=== PATIENT | male | born 1945 | race Caucasian/White ===

== ENCOUNTER → 2018-04-06 | Outpatient (CLI) | payer MEDICARE ==
[~2018-04-06] MED LIST: GLIPIZIDE PO; METFORMIN PO; VICTOZA PO
[2018-04-06 14:43] LABS: ALANINE AMINOTRANSFERASE 24 U/L (12-78); ALBUMIN 3.9 g/dL (3.4-5.0); ANION GAP 8 mmol/L (5-15); CALCIUM 8.9 mg/dL (8.5-10.1); CHLORIDE 110 mmol/L (98-107); CREATININE 1.17 mg/dL (0.7-1.3)
[2018-04-06 14:45] LABS: ALKALINE PHOSPHATASE 103 U/L (45-117); BILIRUBIN,TOTAL 0.3 mg/dL (0.2-1.0); TOTAL PROTEIN 7.7 g/dL (6.4-8.2)
[2018-04-06 14:47] LABS: BASOPHILS # (AUTO) 0.01 x10^3/uL (0-0.1); BASOPHILS % (AUTO) 0 % (0-1); EOSINOPHILS # (AUTO) 0.25 x10^3/uL (0-0.4); EOSINOPHILS % (AUTO) 4 % (1-7); LYMPHOCYTES # (AUTO) 1.32 x10^3/uL (1-3.4); LYMPHOCYTES % (AUTO) 19 % (22-44); MD NO; MEAN CORPUSCULAR HGB CONC 32.2 g/dL (33.2-36.2); MEAN CORPUSCULAR VOLUME 83.9 fL (81-97); MEAN PLATELET VOLUME 9.6 fL (7.4-10.4); MONOCYTES # (AUTO) 0.51 x10^3/uL (0.2-0.8); MONOCYTES % (AUTO) 7 % (2-9); NEUTROPHILS # (AUTO) 4.94 x10^3/uL (1.8-6.8); NEUTROPHILS % (AUTO) 70 % (42-75); PLATELET COUNT 268 x10^3/uL (130-400); RED BLOOD COUNT 4.63 x10^6/uL (4.38-5.82); RED CELL DISTRIBUTION WIDTH 16.8 % (9.4-14.8)
== END | disposition home or self-care (01) ==
LOC: STAR 13:17
DX: Z01.818 Encounter for other preprocedural examination (principal); R93.5 Abnormal findings on diagnostic imaging of other abdominal regions, including retroperitoneum
CPT/HCPCS: 36415; 80053; 85025; 93005

== ENCOUNTER 2018-04-12 06:38 | Day surgery (SDC) | payer MEDICARE ==
[~2018-04-12] VITALS: Ht 185.4 cm; Wt 102.0 kg
[2018-04-12 06:56] VITALS: BP 136/78
[2018-04-12] MEDS ORDERED: ALBUTEROL SULFATE 2.5 MG/3 ML NPPB PRN (07:00)
[2018-04-12] MEDS ORDERED: hydrALAzine 20 MG/ML, 1ML IV PRN (07:00)
[2018-04-12] MEDS ORDERED: ACETAMINOPHEN 325 MG TABLET PO PRN (07:00)
[2018-04-12] MEDS ORDERED: METOPROLOL 1 MG/ML, 5ML IV PRN (07:00)
[2018-04-12] MEDS ORDERED: OXYcodone 5 MG/5 ML ORAL.SOL UDC PO PRN (07:00)
[2018-04-12] MEDS ORDERED: EPHEDRINE 50 MG/ML, 1ML IVPush PRN (07:00)
[2018-04-12] MEDS ORDERED: ONDANSETRON 2MG/ML, 2ML IV PRN (07:00)
[2018-04-12] MEDS ORDERED: FENTANYL PF 100 MCG/2ML IV PRN (07:00)
[2018-04-12] MEDS ORDERED: LABETALOL 5MG/ML, 20ML IV PRN (07:00)
[2018-04-12] MEDS ORDERED: LACTATED RINGERS 1,000 ML IV SCH (07:02)
[2018-04-12] MEDS ORDERED: PROPOFOL 10 MG/ML, 20ML ONE ×2 (07:04)
[2018-04-12] MEDS ORDERED: METF500T5 PO (07:06)
[2018-04-12] MEDS ORDERED: LIRA0.6P2 SC (07:06)
[2018-04-12] MEDS ORDERED: GLIP5TAB10 PO (07:06)
[2018-04-12] MEDS ORDERED: CIPR500T87 PO (07:06)
[2018-04-12] MEDS ORDERED: ATOR20TA PO (07:07)
[2018-04-12] MEDS ORDERED: BENA1TAB10 PO (07:07)
[2018-04-12] MEDS ORDERED: BUPR-173 PO (07:07)
[2018-04-12] MEDS ORDERED: SUCCINYLCHOLINE 20 MG/ML, 10ML ONE (07:15)
[2018-04-12] MEDS ORDERED: LIDOCAINE-MPF 1%, 2ML INFIL ONE (07:30)
[2018-04-12] MEDS ORDERED: ONDANSETRON 2MG/ML, 2ML ONE (08:01)
[2018-04-12] MEDS ORDERED: FENTANYL PF 100 MCG/2ML ONE (08:01)
== END 2018-04-12 10:25 | disposition home or self-care (01) ==
LOC: OUT 06:38
PROVIDERS: ATTEND Internal Medicine
DX: K86.2 Cyst of pancreas (principal); K57.30 Diverticulosis of large intestine without perforation or abscess without bleeding; K21.9 Gastro-esophageal reflux disease without esophagitis; D64.9 Anemia, unspecified; E11.9 Type 2 diabetes mellitus without complications; Z98.890 Other specified postprocedural states; Z95.1 Presence of aortocoronary bypass graft; Z72.89 Other problems related to lifestyle; Z86.010 Personal history of colon polyps; Z79.82 Long term (current) use of aspirin; Z98.0 Intestinal bypass and anastomosis status
CPT/HCPCS: 43238; 82962; 88172; 88173; 88305; J0330; J2405; J2704; J3010

== ENCOUNTER 2018-04-26 13:24 | Inpatient (IN) | payer MEDICARE ==
[~2018-04-26] VITALS: Ht 185.4 cm; Wt 97.4 kg
[~2018-04-26 13:24] MED LIST changes: +ATOR20TA PO; +BENA1TAB10 PO; +BUPR-173 PO; +CIPR500T87 PO; +GLIP5TAB10 PO; +LIRA0.6P2 SC; +METF500T17 PO
[2018-04-26] MEDS ORDERED: SODIUM CHLORIDE FLUSH 10ML SYR IVF PRN (14:30)
[2018-04-26] MEDS ORDERED: morphine SULFATE 10 MG/ML, 1ML IVPush PRN (15:00)
[2018-04-26] MEDS ORDERED: ACETAMINOPHEN 325 MG TABLET PO PRN (15:00)
[2018-04-26] MEDS ORDERED: GLUCAGON 1 MG IM PRN (15:00)
[2018-04-26] MEDS ORDERED: DEXTROSE 4 GM TAB.CHEW PO PRN (15:00)
[2018-04-26] MEDS ORDERED: HYDROcodone/APAP 5/325 TABLET PO PRN (15:00)
[2018-04-26] MEDS ORDERED: DEXTROSE 50%, 50ML SYRINGE IVPush PRN (15:00)
[2018-04-26] MEDS ORDERED: PROMETHAZINE 25 MG/ML, 1ML IM PRN (15:00)
[2018-04-26] MEDS ORDERED: DOCUSATE 100 MG CAPSULE PO PRN (15:00)
[2018-04-26] MEDS ORDERED: POLYETHYLENE GLYCOL 17 GM PACKET PO PRN (15:00)
[2018-04-26] MEDS ORDERED: ONDANSETRON 2MG/ML, 2ML IVPush PRN (15:00)
[2018-04-26 15:13] VITALS: BP 122/76
[2018-04-26] MEDS: INSULIN LISPRO 100 UNITS/ML, PEN SQ-INSULIN SCH ×2 (16:00→20:28)
[2018-04-26] MEDS: NS + 20MEQ KCL 1,000 ML IV SCH (17:48)
[2018-04-26 19:55] VITALS: BP 106/68
[2018-04-26] MEDS ORDERED: ZOLPIDEM 5MG TABLET PO PRN (20:30)
[2018-04-26] MEDS: CIPROFLOXACIN 500 MG TABLET PO SCH (20:57)
[2018-04-26] MEDS ORDERED: CIPROFLOXACIN 500 MG TABLET PO SCH (21:00)
[2018-04-26] MEDS ORDERED: ATORVASTATIN 20 MG TABLET PO SCH (21:00)
[2018-04-27 02:35] VITALS: BP 171/81
[2018-04-27 02:58] VITALS: BP 152/84
[2018-04-27] MEDS: NS + 20MEQ KCL 1,000 ML IV SCH (04:30)
[2018-04-27] MEDS: SODIUM CHLORIDE FLUSH 10ML SYR IVF SCH ×2 (04:31→07:54)
[2018-04-27 05:09] LABS: BASOPHILS # (AUTO) 0.03 x10^3/uL (0-0.1); BASOPHILS % (AUTO) 1 % (0-1); EOSINOPHILS # (AUTO) 0.27 x10^3/uL (0-0.4); EOSINOPHILS % (AUTO) 4 % (1-7); LYMPHOCYTES # (AUTO) 1.41 x10^3/uL (1-3.4); LYMPHOCYTES % (AUTO) 19 % (22-44); MD NO; MEAN CORPUSCULAR HGB CONC 32.4 g/dL (33.2-36.2); MEAN CORPUSCULAR VOLUME 83.2 fL (81-97); MEAN PLATELET VOLUME 9.9 fL (7.4-10.4); MONOCYTES # (AUTO) 0.45 x10^3/uL (0.2-0.8); MONOCYTES % (AUTO) 6 % (2-9); NEUTROPHILS # (AUTO) 5.26 x10^3/uL (1.8-6.8); NEUTROPHILS % (AUTO) 71 % (42-75); PLATELET COUNT 285 x10^3/uL (130-400); RED BLOOD COUNT 4.41 x10^6/uL (4.38-5.82); RED CELL DISTRIBUTION WIDTH 16.9 % (9.4-14.8)
[2018-04-27 05:13] LABS: ALANINE AMINOTRANSFERASE 18 U/L (12-78); ALBUMIN 3.2 g/dL (3.4-5.0); ANION GAP 9 mmol/L (5-15); CALCIUM 8.3 mg/dL (8.5-10.1); CHLORIDE 107 mmol/L (98-107); CHOLESTEROL, TOTAL 90 mg/dL (140-239); CREATININE 1.25 mg/dL (0.7-1.3); TRIGLYCERIDES 110 mg/dL (50-200); VLDL CHOLESTEROL 22 mg/dL (0-25)
[2018-04-27 05:22] LABS: ALKALINE PHOSPHATASE 85 U/L (45-117); BILIRUBIN,TOTAL 0.4 mg/dL (0.2-1.0); CHOL/HDL RATIO 2.4; HDL CHOL % 41 % (26-37); HDL CHOLESTEROL (DIRECT) 37 mg/dL (40-60); LDL CHOLESTEROL,CALCULATED 31 mg/dL (54-169); LDL/HDL RATIO 0.8 (0.5-3.0); TOTAL PROTEIN 6.5 g/dL (6.4-8.2)
[2018-04-27] MEDS: CIPROFLOXACIN 500 MG TABLET PO SCH (07:53)
[2018-04-27] MEDS: INSULIN LISPRO 100 UNITS/ML, PEN SQ-INSULIN SCH ×3 (07:54→15:55)
[2018-04-27] MEDS ORDERED: MAGNESIUM SULFATE PMX 2GM/50ML 50 ML IV ONE (08:00)
[2018-04-27 08:24] VITALS: BP 145/78
[2018-04-27] MEDS ORDERED: SENNA/DOCUSATE TABLET PO SCH (09:00)
[2018-04-27] MEDS ORDERED: BUPROPION SR 100 MG TABLET PO SCH (09:00)
[2018-04-27] MEDS ORDERED: GADOBUTROL 10 MMOL/10 ML VIAL ONE (09:26)
[2018-04-27 12:52] VITALS: BP 113/71
== END 2018-04-27 17:22 | disposition home or self-care (01) | DRG 683 ==
LOC: ED 14:10 → INTOOBSV 14:11 → 3NW 14:11 → SUATTDRO 14:32 → ED 14:39 → 3NW 14:55 → ED 14:55 → OBSVTOIN 04-27 14:02
PROVIDERS: ADMIT Family Medicine; ATTEND Family Medicine
DX: N17.0 Acute kidney failure with tubular necrosis (principal); K86.1 Other chronic pancreatitis; K86.2 Cyst of pancreas; E11.9 Type 2 diabetes mellitus without complications; E83.42 Hypomagnesemia; E86.0 Dehydration; N41.9 Inflammatory disease of prostate, unspecified; I95.9 Hypotension, unspecified; R63.4 Abnormal weight loss; R33.9 Retention of urine, unspecified; Z98.84 Bariatric surgery status; Z68.28 Body mass index [BMI] 28.0-28.9, adult; Z79.84 Long term (current) use of oral hypoglycemic drugs
CPT/HCPCS: 36415; 74183; 80053; 80061; 82962; 83690; 83735; 84100; 84443; 85025; 96365; 96366; 99285; A9585; G0378; J3480; J3475